=== PATIENT | female | born 1955 | race Asian ===

== ENCOUNTER 2020-05-10 00:12 | Inpatient (IN) | payer MEDICAID ==
[~2020-05-10] VITALS: Ht 154.9 cm; Wt 59.9 kg
[2020-05-10] MEDS ORDERED: DILTIAZEM HCL 5MG/ML 5ML VIAL IV ONE (00:45)
[2020-05-10 01:10] LABS: BASOPHILS % 0.5 % (0.0-2.0); EOSINOPHILS % 1.7 % (0.0-5.0); HEMATOCRIT. 46.9 % (36.0-48.0); HEMOGLOBIN. 15.6 g/dL (12.0-16.0); LYMPHOCYTES % 51.5 % (20.0-50.0); MEAN CORPUSCULAR HEMOGLOBIN 29.3 pg (28.0-32.0); MEAN CORPUSCULAR VOLUME 88.3 fL (81.0-99.0); MONOCYTES % 6.7 % (2.0-8.0); NEUTROPHILS % 39.6 % (40.0-76.0); PLATELET 197 x1000/uL (130-400); RED BLOOD CELL COUNT 5.31 mill/uL (4.2-5.4)
[2020-05-10 01:15] LABS: CHLORIDE 102 mEq/L (98-107)
[2020-05-10] MEDS ORDERED: DILTIAZEM HCL 60MG TABLET PO ONE (01:30)
[2020-05-10] MEDS ORDERED: FUROSEMIDE 40MG/4ML VIAL IVP ONE (02:00)
[2020-05-10] MEDS: METOPROLOL TARTRATE 50MG TABLET PO SCH ×2 (09:09→21:00)
[2020-05-10] MEDS: MORPHINE SULFATE 2 MG/ML CPJ (NOT FOR IM USE) IV PRN ×3 (09:11→19:43)
[2020-05-10] MEDS ORDERED: ONDANSETRON HCL 4MG/2ML INJ IV PRN (09:45)
[2020-05-10] MEDS ORDERED: DILTIAZEM HCL 5MG/ML 5ML VIAL IV NR (09:45)
[2020-05-10] MEDS: POTASSIUM CHLORIDE 20MEQ TABLET SR PO SCH (10:10)
[2020-05-10] MEDS: FUROSEMIDE 40MG/4ML VIAL IVP SCH ×2 (10:10→17:18)
[2020-05-10] MEDS ORDERED: ENOXAPARIN 40MG/0.4ML SYR SUBCUT SCH (10:15)
[2020-05-10] MEDS: ENOXAPARIN 60MG/0.6ML SYR SUBCUT SCH ×2 (10:24→21:13)
[2020-05-10] MEDS: DILTIAZEM HCL 60MG TABLET PO SCH ×2 (12:35→17:18)
[2020-05-10] MEDS: ACETAMINOPHEN 325MG TABLET PO PRN (12:36)
[2020-05-10 18:49] VITALS: BP 108/63
[2020-05-10 18:57] VITALS: BP 108/63
[2020-05-10 20:00] VITALS: BP 120/83
[2020-05-10 22:00] VITALS: BP 99/65
[2020-05-11] VITALS (13 sets, daily range): BP systolic 93–122; BP diastolic 24–84
[2020-05-11] MEDS: ACETAMINOPHEN 325MG TABLET PO PRN (00:12)
[2020-05-11] MEDS: DILTIAZEM HCL 60MG TABLET PO SCH ×2 (00:12→06:00)
[2020-05-11 06:18] LABS: BASOPHILS % 0.4 % (0.0-2.0); EOSINOPHILS % 0.6 % (0.0-5.0); HEMATOCRIT. 42.6 % (36.0-48.0); HEMOGLOBIN. 14.3 g/dL (12.0-16.0); LYMPHOCYTES % 28.1 % (20.0-50.0); MEAN CORPUSCULAR HEMOGLOBIN 29.7 pg (28.0-32.0); MEAN CORPUSCULAR VOLUME 88.7 fL (81.0-99.0); MEAN PLATELET VOLUME 8.3 fl (7.4-10.4); MONOCYTES % 6.5 % (2.0-8.0); NEUTROPHILS % 64.4 % (40.0-76.0); PLATELET 169 x1000/uL (130-400); RED BLOOD CELL COUNT 4.81 mill/uL (4.2-5.4)
[2020-05-11 06:24] LABS: CHLORIDE 101 mEq/L (98-107)
[2020-05-11] MEDS ORDERED: POTASSIUM CHLORIDE 20MEQ TABLET SR PO NR (06:49)
[2020-05-11] MEDS: FUROSEMIDE 40MG/4ML VIAL IVP SCH (08:36)
[2020-05-11] MEDS: METOPROLOL TARTRATE 50MG TABLET PO SCH ×2 (08:36→20:48)
[2020-05-11] MEDS: POTASSIUM CHLORIDE 20MEQ TABLET SR PO SCH (08:36)
[2020-05-11] MEDS: ENOXAPARIN 60MG/0.6ML SYR SUBCUT SCH ×2 (10:41→22:32)
[2020-05-12] VITALS (10 sets, daily range): BP systolic 96–153; BP diastolic 46–76
[2020-05-12] MEDS: ENOXAPARIN 60MG/0.6ML SYR SUBCUT SCH ×2 (09:56→21:19)
[2020-05-12] MEDS: FUROSEMIDE 40MG TABLET PO SCH (09:58)
[2020-05-12] MEDS: METOPROLOL TARTRATE 50MG TABLET PO SCH (09:58)
[2020-05-12] MEDS: POTASSIUM CHLORIDE 20MEQ TABLET SR PO SCH (09:58)
[2020-05-12] MEDS ORDERED: LIDOCAINE HCL 2% JELLY 5ML ONE (10:46)
[2020-05-12] MEDS ORDERED: TETRACAINE/BENZOCAINE/BUTAMBEN 20 GM SPRAY MM ONE (10:47)
[2020-05-12] MEDS ORDERED: MIDAZOLAM HCL 2 MG/2 ML VIAL ONE ×2 (10:47→11:25)
[2020-05-12] MEDS ORDERED: FENTANYL CITRATE/PF 50MCG/ML 2ML VIAL ONE (10:47)
[2020-05-12 12:14] LABS: BASOPHILS % 1.3 % (0.0-2.0); HEMATOCRIT. 46.2 % (36.0-48.0); HEMOGLOBIN. 15.7 g/dL (12.0-16.0); LYMPHOCYTES % 47.7 % (20.0-50.0); MEAN CORPUSCULAR HEMOGLOBIN 29.7 pg (28.0-32.0); MEAN CORPUSCULAR VOLUME 87.5 fL (81.0-99.0); MONOCYTES % 8.6 % (2.0-8.0); NEUTROPHILS % 39.4 % (40.0-76.0); PLATELET 184 x1000/uL (130-400); RED BLOOD CELL COUNT 5.28 mill/uL (4.2-5.4); RED CELL DISTRIBUTION WIDTH 14.4 % (11.6-14.6)
[2020-05-12] MEDS ORDERED: DIGOXIN 500MCG/2ML AMP IV SCH (12:15)
[2020-05-12 12:24] LABS: PROTHROMBIN TIME 10.9 sec (9.6-11.0)
[2020-05-12 12:28] LABS: CHLORIDE 102 mEq/L (98-107)
[2020-05-12] MEDS ORDERED: WARFARIN SODIUM 7.5MG TABLET PO SCH (18:00)
[2020-05-12] MEDS: DIGOXIN 125MCG TABLET PO SCH (18:11)
[2020-05-12] MEDS: METOPROLOL TARTRATE 100MG TABLET PO SCH (21:19)
[2020-05-13] VITALS (13 sets, daily range): BP systolic 92–154; BP diastolic 34–89
[2020-05-13 07:02] LABS: INR 1.1; PROTHROMBIN TIME 11.9 sec (9.6-11.0)
[2020-05-13] MEDS: POTASSIUM CHLORIDE 20MEQ TABLET SR PO SCH (08:56)
[2020-05-13] MEDS: METOPROLOL TARTRATE 100MG TABLET PO SCH ×2 (08:56→21:24)
[2020-05-13] MEDS: FUROSEMIDE 40MG TABLET PO SCH (08:56)
[2020-05-13] MEDS: ENOXAPARIN 60MG/0.6ML SYR SUBCUT SCH ×2 (09:16→21:25)
[2020-05-13] MEDS ORDERED: WARFARIN SODIUM 7.5MG TABLET PO SCH (18:00)
[2020-05-13] MEDS: DIGOXIN 125MCG TABLET PO SCH (18:12)
[2020-05-14] VITALS (9 sets, daily range): BP systolic 108–133; BP diastolic 66–84
[2020-05-14 06:21] LABS: INR 2.2; PROTHROMBIN TIME 22.4 sec (9.6-11.0)
[2020-05-14] MEDS: FUROSEMIDE 40MG TABLET PO SCH (09:23)
[2020-05-14] MEDS: POTASSIUM CHLORIDE 20MEQ TABLET SR PO SCH (09:23)
[2020-05-14] MEDS: METOPROLOL TARTRATE 100MG TABLET PO SCH (10:42)
[2020-05-14] MEDS: ENOXAPARIN 60MG/0.6ML SYR SUBCUT SCH (10:45)
[2020-05-14] MEDS ORDERED: DIGO-26 PO (12:00)
[2020-05-14] MEDS ORDERED: FURO40TA5 PO (12:00)
[2020-05-14] MEDS ORDERED: POTA20TA82 MT (12:00)
[2020-05-14] MEDS ORDERED: METO100T16 PO (12:00)
[2020-05-14] MEDS ORDERED: WARF5TAB76 MT (12:01)
[2020-05-14] MEDS ORDERED: ENOXAPARIN 60MG/0.6ML SYR SUBCUT SCH (21:00)
== END 2020-05-14 15:45 | disposition home or self-care (01) | DRG 201 ==
LOC: ER 00:12 → 3WST 01:56 → ENRESERV 17:13
PROVIDERS: ADMIT Internal Medicine; ATTEND Internal Medicine
DX: I48.0 Paroxysmal atrial fibrillation (principal); I11.0 Hypertensive heart disease with heart failure; I51.3 Intracardiac thrombosis, not elsewhere classified; I48.20 Chronic atrial fibrillation, unspecified; E87.1 Hypo-osmolality and hyponatremia; E87.6 Hypokalemia; E78.5 Hyperlipidemia, unspecified; I50.41 Acute combined systolic (congestive) and diastolic (congestive) heart failure; Z20.828 Contact with and (suspected) exposure to other viral communicable diseases
CPT/HCPCS: 36415; 71045; 72131; 80048; 80053; 80061; 80162; 83735; 83880; 84443; 84484; 85025; 87426; 93005; 93306; 93312; 93923; 99291; J1160; J1650; J1940; J2250; J2270; J2405; J3010; J3490